=== PATIENT | female | born 2000 | race Caucasian/White ===

== ENCOUNTER 2023-10-08 11:05 | Emergency (ER) | payer OTHER, SELFPAY ==
[2023-10-08 11:05] VITALS: BMI 18.0
[2023-10-08 11:22] VITALS: BP 119/75
[2023-10-08 11:51] LABS: % Basophils 0.5 % (0-2); % Eosinophils 2.8 % (0-6); % Immature Granulocytes 0.2 % (0-0.5); % Lymphocytes 29.4 % (20.5-51.1); % Neutrophils 60.1 % (42.2-75.2); Absolute Eosinophils 0.2 10^3/uL (0-0.7); Absolute Lymphocytes 1.9 10^3/uL (1.2-3.4); Absolute Monocytes 0.4 10^3/uL (0.1-0.6); Absolute Neutrophils 3.8 10^3/uL (1.4-6.5); Hematocrit 37.4 % (37.0-47.0); Hemoglobin 13.4 g/dL (12.0-16.0); Mean Corp Hgb Conc. 35.8 g/dL (33.0-37.0); Mean Corpuscular Hgb 30.6 pg (27.0-31.0); Mean Corpuscular Volume 85.4 fL (81.0-99.0); Mean Platelet Volume 10.3 fL (7.4-10.4); Nucleated Red Blood Cells % 0 %; Platelet Count 242 10^3/uL (130-400); Red Blood Cell Count 4.38 10^6/uL (4.20-5.40); Red Cell Dist. Width 12.3 % (11.5-14.5); White Blood Cell Count 6.3 10^3/uL (4.8-10.8)
[2023-10-08 11:59] LABS: Urine Albumin Negative (Neg - Trace); Urine Bilirubin Negative (Negative); Urine Character Clear (Clear); Urine Color Straw; Urine Glucose Negative (Negative); Urine Ketone Negative (Negative); Urine Leukocyte Trace (Negative); Urine Nitrite Negative (Negative); Urine Occult Blood Negative (Negative); Urine Urobilinogen Negative (Neg - 1+)
[2023-10-08 12:06] LABS: ALT (SGPT) 16 U/L (0-35); AST (SGOT) 23 U/L (14-36); Albumin 4.3 g/dl (3.5-5.0); Alkaline Phosphatase 50 U/L (38-126); Blood Urea Nitrogen 5 mg/dl (7-17); Carbon Dioxide 26 mmol/L (22-30); Chloride 106 mmol/L (98-107); Glucose 101 mg/dl (70-99); Potassium 4.2 mmol/L (3.5-5.1); Sodium 136 mmol/L (135-145); Total Protein 6.8 g/dl (6.3-8.2); eGFR > 60.00
[2023-10-08 12:09] LABS: COVID-19 Antigen Negative (Negative)
[2023-10-08 12:10] LABS: Urine Squamous Cell 16-20 /LPF (Few)
[2023-10-08 12:11] LABS: Urine Bacteria Few (Negative); Urine Red Blood Cell 0-2 /HPF (0-2)
[2023-10-08 12:13] LABS: HCG, Serum Qualitative Screen Negative
--- NOTE | 2023-10-08 12:29 | ED.GENMED ---
History of Present Illness
General
Chief Complaint: Fainting/Passed Out
Time Seen by Provider: 10/08/23 12:29
Travel History
Have you had any contact with someone who has COVID-19?: No
Do you have any symptoms of coronavirus? Fever > 100 degrees, chills, cough, shortness of breath, sore throat, loss of taste or smell, muscle aches, or headache?: No
History of Present Illness
History of Present Illness:
HPI: Patient presents after 2 syncopal/near syncope events. Over the last several days, she has been feeling lightheaded recently as well as weak. She has no significant past medical history but does report a family history of moyamoya disease.
She has intermittently had some chest discomfort but none currently.
EXAM:
GENERAL: Well appearing in no distress
HEENT: Moist oral mucosa
CARDIOVASCULAR: No murmurs, normal heart rate and rhythm, No chest wall tenderness
PULMONARY: No respiratory distress, breath sounds are clear and equal
ABDOMEN: Soft with no peritoneal signs, no tenderness
NEUROLOGIC: Excellent strength all extremities, no coordination deficits, there is no facial asymmetry and there is excellent speech/language
PSYCHIATRIC: Appropriate mental status, normal insight and judgement
EXTREMITIES: Nontender, no edema, moves all extremities equally
SKIN: No rash, no lesions
ED COURSE:
12:40 PM: I initially evaluated patient
NUMBER AND COMPLEXITY OF PROBLEMS ADDRESSED AT THE ENCOUNTER
� Chronic conditions affecting care: Anxiety/depression
� Acute Exacerbation and/or Progression of Chronic Illness: This is an acute problem
� Differential Diagnosis includes: Vasovagal syncope, dehydration, electrolyte abnormality, thyroid disease, dysrhythmia, doubt intracranial pathology as she has a normal neurologic examination
AMOUNT AND/OR COMPLEXITY OF DATA TO BE REVIEWED AND ANALYZED
� I performed an independent evaluation of and my interpretation is:
EKG: Sinus 79, inferior T wave abnormality, downgoing T waves noted in V3 however the QRS is also negative, QTc [address]:
X-rays:
Laboratory Studies: White count and hemoglobin are normal, chemistries unremarkable, hCG negative, urinalysis without any clear evidence for infection.
Other:
� Review of other/old records: TSH was checked nearly 1 month ago which was normal
� Clinical information was obtained by an independent historian: Spoke to the mother at bedside
� Prescriptions/Medications Considered but not given:
� Further testing considered but not performed: Considered CTA for further evaluation given family history of moyamoya however the patient has no neurologic symptoms and an NIH stroke scale of 0
RISK OF COMPLICATIONS AND/OR MORBIDITY OR MORTALITY OF PATIENT MANAGEMENT
� Social determinants of health affecting care: Lives at home
� Discussion with other providers:
� Escalation of care including admission/observation vs risk of discharge considered: Initial blood work is unremarkable however the EKG is slightly changed and she does report some intermittent chest discomfort. Therefore
troponin will be obtained. Troponin negative. I reassessed the patient at 2 PM and she feels somewhat improved but some lightheadedness persists. She does have a low blood pressure reading however she is a very small stature. I have given her
contact information for neurologist regarding her concerns for family history of moyamoya.
Past History
Past History
ED Past Medical History: None
ED Past Surgical History: None
Patient has exhibited threatening behavior?: No
PSI?: No
Phy Exam
Physical Exam
Physical Exam:
See HPI
Course
Orders/Labs/Results
Orders:
Orders
10/08/23 11:25
Electrocardiogram (*1) Urgent
Reason for Study: Other
Other Reason for Exam: syncope
EKG- Treatment ONCE
Test Result ONCE
10/08/23 11:39
CMP [Comprehensive Metabolic Panel] Urgent
COVID-19 Antigen Urgent
Source: Nasal Swab
Complete Blood Count/With Diff Urgent
HCG, Serum Qualitative Screen Urgent
10/08/23 11:47
Urinalysis Reflex To Culture Urgent
Date Specimen was Collected: 10/08/23
Time Specimen was Collected: 11:25
Urine Microscopic Reflex Cult Urgent
10/08/23 12:47
0.9% Sodium Chloride 1000 ml [Nss] 1,000 ml IV BOLUS
10/08/23 12:52
Troponin I Urgent
Abnormal Lab Results
10/08/23 10/08/23
11:39 11:47
BUN 5 L mg/dl
(7-17)
Creatinine 0.5 L mg/dL
(0.6-1.0)
Glucose 101 H mg/dl
(70-99)
Leukocyte Esterase Rfl Trace A
(Negative)
Urine Bacteria (Reflex) Few A
(Negative)
10/08/23 11:39
10/08/23 11:39
Vital Signs
Initial and Last Documented VS:
Initial Vital Signs
Temp Pulse Resp BP Pulse Ox
97.5 F 95 16 119/75 98
10/08/23 11:22 10/08/23 11:22 10/08/23 11:22 10/08/23 11:22 10/08/23 11:22
Last Documented Vital Signs
Temp Pulse Resp BP Pulse Ox
97.5 F 81 16 88/64 98
10/08/23 11:22 10/08/23 13:46 10/08/23 11:22 10/08/23 13:46 10/08/23 11:22
*Critical Care Note
Total Time (30-74mins, 75-104mins- exclusive of procedures): Not Applicable
ED Attending Note
-
Portions of this chart may have been created with voice recognition software.� Occasional wrong word or��sound alike� substitutions may have occurred due to the inherent limitations of voice recognition software.
Discharge Plan
Departure
Patient Disposition: Home (Routine Discharge)
Date of Disposition: 10/08/23
Time of Disposition: 13:58
Patient with high blood pressure during this ER visit?: No
Discharge Problem:
Syncope
Prescriptions:
No Action
ondansetron 4 mg tablet,disintegrating
4 mg PO TIDPRN PRN (Reason: nausea/vomiting) Qty: 10 1RF
albuterol sulfate 90 mcg/actuation aerosol powdr breath activated
2 inh inhalation Q6H PRN (Reason: shortness of breath) Qty: 1 0RF
Referrals:
Jarrod Mejía MD [Active] - Follow up in 10 days
UNKNOWN - PT DOES,NOT KNOW [Family Provider] -
Stand Alone Forms: Return to Work
Activity Restrictions/Additional Instructions:
One of your blood pressure readings was somewhat low. We did give you a bag of fluid. Basic blood work is normal. I have also given the contact information for a local neurologist regarding the family history of moyamoya.
Interventions
Interventions:
*Risk Screen - Suicide Last Done: 10/08/23 12:30
*General Assessment Last Done: 10/08/23 12:30
*Neglect/Abuse Screening Last Done: 10/08/23 12:30
ED- Fall Risk Assessment Last Done: 10/08/23 12:30
*ED COVID-19 Vaccine History Last Done: 10/08/23 11:22
ED- Cardiac Assessment Last Done: 10/08/23 12:30
ED- Neurological Assessment Last Done: 10/08/23 12:30
[2023-10-08] MEDS: NSS 1000 IV (12:53)
[2023-10-08 13:30] LABS: Troponin I < 0.012 ng/ml
[2023-10-08 13:46] VITALS: BP 88/64
[2023-10-08 14:27] VITALS: BP 88/61
== END 2023-10-08 14:27 | disposition home or self-care (01) ==
LOC: EMR 11:05
PROVIDERS: Emergency Medicine; EMERGENCY PHYSICIAN Emergency Medicine
DX: R55 Syncope and collapse (principal); F32.A Depression, unspecified; F41.9 Anxiety disorder, unspecified
CPT/HCPCS: 99283; 96360; 80053; 81003; 81015; 84484; 84703; 85025; 87811; 93005

== ENCOUNTER 2024-06-07 11:09 | Emergency (ER) | payer OTHER, SELFPAY ==
[2024-06-07 11:14] VITALS: BP 105/75
[2024-06-07 11:41] LABS: % Basophils 0.6 % (0-2); % Eosinophils 1.7 % (0-6); % Immature Granulocytes 0.2 % (0-0.5); % Lymphocytes 40.6 % (20.5-51.1); % Monocytes 7.7 % (1.7-9.3); % Neutrophils 49.2 % (42.2-75.2); Absolute Eosinophils 0.1 10^3/uL (0-0.7); Absolute Lymphocytes 2.2 10^3/uL (1.2-3.4); Absolute Monocytes 0.4 10^3/uL (0.1-0.6); Absolute Neutrophils 2.6 10^3/uL (1.4-6.5); Hematocrit 38.6 % (37.0-47.0); Hemoglobin 13.8 g/dL (12.0-16.0); Mean Corp Hgb Conc. 35.8 g/dL (33.0-37.0); Mean Corpuscular Hgb 31.4 pg (27.0-31.0); Mean Corpuscular Volume 87.9 fL (81.0-99.0); Mean Platelet Volume 10.4 fL (7.4-10.4); Nucleated Red Blood Cells % 0 %; Platelet Count 213 10^3/uL (130-400); Red Blood Cell Count 4.39 10^6/uL (4.20-5.40); Red Cell Dist. Width 12.1 % (11.5-14.5); White Blood Cell Count 5.3 10^3/uL (4.8-10.8)
[2024-06-07 11:53] LABS: PT 14.1 Sec (11.4-14.6)
[2024-06-07 11:54] LABS: APTT 27.3 Sec (23.4-35.0)
[2024-06-07 11:55] LABS: ALT (SGPT) 23 U/L (0-35); AST (SGOT) 26 U/L (14-36); Albumin 4.8 g/dl (3.5-5.0); Alkaline Phosphatase 51 U/L (38-126); Blood Urea Nitrogen 5 mg/dl (7-17); Calcium 9.8 mg/dl (8.4-10.2); Carbon Dioxide 26 mmol/L (22-30); Chloride 103 mmol/L (98-107); Glucose 90 mg/dl (70-99); Potassium 3.6 mmol/L (3.5-5.1); Sodium 142 mmol/L (135-145); Total Bilirubin 0.9 mg/dl (0.2-1.3); Total Protein 7.1 g/dl (6.3-8.2); eGFR > 60.00
[2024-06-07 13:10] VITALS: BP 100/61
[2024-06-07 15:05] VITALS: BP 92/61
--- NOTE | 2024-06-07 15:21 | ED.GENMED ---
History of Present Illness
General
Chief Complaint: Rectal Bleeding
Source: patient
Exam Limitations: none
Time Seen by Provider: 06/07/24 12:27
Nursing documentation reviewed up to this point in time: agreed with
History of Present Illness
History of Present Illness:
pt s a 24 y/oF
h/o RBBB
no AC
started notincing that she was constipated over the past 2-3 weeks
was having firm hard to pass stools
1 week ago she went to urgent care and they did an x-ray and told her she was constipated. They told her to take MiraLAX twice a day for 3 days which she did and she started having regular bowel movements. She has not used MiraLAX in a couple of
days but today after trying to pass stool she saw blood in the toilet and then mixed in the stool. It was red blood. He did not color the toilet bowl red. She had a little bit of lower abdominal pain and rectal pain as well. She has not had any
vomiting, nausea, fever or chills. Patient's not on any anticoagulation. She has never had any hemorrhoids that she knows of. She denies placing anything in her rectum
Past History
Past History
ED Past Medical History: None
ED Past Surgical History: None
Patient has exhibited threatening behavior?: No
PSI?: No
Review of Systems
Review of Systems
Allergies reviewed?: Yes
All Other Systems: Not applicable
Phy Exam
Physical Exam
Physical Exam:
GENERAL: Alert , in no apparent distress
EYE: pupils equal and reactive
NECK: Supple
ENT: o/p clr, mmm.
CARDIAC: Regular rate and rhythm .
LUNGS: Clear breath sounds bilaterally, no acute respiratory distress, no wheezes/rales/rhonchi
ABDOMEN: Soft, no abdominal tenderness, no r/g, no cvat, normal bowel sounds
RectalL no fissures, there is a slightly prolapsed hemorrhoid which was palpated internally, there is no obvious thrombosis or bleeding. She was heme-negative
There was no significant rectal tenderness
NEUROLOGICAL: Alert and oriented, no focal neuro deficits
SKIN: Warm and dry, skin intact.
MUSCULOSKELETAL: No edema, well perfused.
PSYCH: Normal and appropriate interaction.
Course
Orders/Labs/Results
Orders:
Orders
06/07/24 11:22
Type+Screen Urgent
Complete Blood Count/With Diff Urgent
Comprehensive Metabolic Panel Urgent
PTT Urgent
Prothrombin Time Urgent
06/07/24 13:04
Abdominal Series [CR Obstruct Series W/pa Chest] Urgent
Comment:
Reason For Exam: rectal bleeding, constipation
Abnormal Lab Results
06/07/24
11:22
MCH 31.4 H pg
(27.0-31.0)
BUN 5 L mg/dl
(7-17)
06/07/24 11:22
06/07/24 11:22
Vital Signs
Initial and Last Documented VS:
Initial Vital Signs
Temp Pulse Resp BP Pulse Ox
98.0 F 91 16 105/75 100
06/07/24 11:14 06/07/24 11:14 06/07/24 11:14 06/07/24 11:14 06/07/24 11:14
Last Documented Vital Signs
Temp Pulse Resp BP Pulse Ox
98.0 F 70 18 92/61 99
06/07/24 11:14 06/07/24 15:05 06/07/24 13:10 06/07/24 15:05 06/07/24 13:10
MDM/Problems Addressed
Differential Diagnosis Includes:
Hemorrhoid, constipation,
MDM/Problems Addressed:
24 y/o f with constipation x 2 weeks
felt it resolved with 3 days miralax so she stopped it
today had BM and had blood on tp and with wiping and mixed with stool, red bloo
no other episodes
some mild anal pain
some lower abd pain and bloating
no thinners
wella pearing, minimal tenderness lower abd
rectal slightly swollen hemorrhoid slightly visible but mostly internal no thrombosis
hg stable
bun normal
xray shows some gas in lower abd no obstruction
metamucil
phenylephrine supp
f/u gi
*Critical Care Note
Total Time (30-74mins, 75-104mins- exclusive of procedures): Not Applicable
ED Attending Note
-
Portions of this chart may have been created with voice recognition software.� Occasional wrong word or��sound alike� substitutions may have occurred due to the inherent limitations of voice recognition software.
Discharge Plan
Departure
Patient Disposition: Home (Routine Discharge)
Date of Disposition: 06/07/24
Time of Disposition: 14:15
Patient with high blood pressure during this ER visit?: No
Condition: Fair
Covid-19: Not Applicable
Discharge Problem:
Rectal bleed, Constipation, Hemorrhoids
Instructions: Hemorrhoids (DC), Gastrointestinal Bleeding (DC)
Prescriptions:
New
phenylephrine HCl 0.25 % suppository
1 supp FL HS PRN (Reason: hemorrhoids) Qty: 12 0RF
Metamucil 3.4 gram/5.4 gram powder
1 tbsp PO DAILY Qty: 660 0RF
No Action
ondansetron 4 mg tablet,disintegrating
4 mg PO TIDPRN PRN (Reason: nausea/vomiting) Qty: 10 1RF
albuterol sulfate 90 mcg/actuation aerosol powdr breath activated
2 inh inhalation Q6H PRN (Reason: shortness of breath) Qty: 1 0RF
Referrals:
UNKNOWN - PT DOES,NOT KNOW [Family Provider] -
Activity Restrictions/Additional Instructions:
Your bleeding is likely from hemorrhoids
use hemorrhoid suppository as directed for 3-5 days
use metamucil daily (this is a stool softener)
eat a high fiber diet and drink plenty of fluids
you have follow up with Gi already scheduled
return for: severe worse bleeding (large volume in toilet, worse pain, fever, passing out,)
you can use a dose of miralax once a day to clear some of th estool out if you feel constipated
but if you are moving your bowels then just use the metamucil
you ahda lot of gas in your lower abdomen likely causing your pain
Interventions
Interventions:
*Risk Screen - Suicide Last Done: 06/07/24 11:14
*General Assessment Last Done: 06/07/24 11:14
*Neglect/Abuse Screening Last Done: 06/07/24 11:14
*ED COVID-19 Vaccine History Last Done: 06/07/24 11:14
*Nursing Disposition Last Done: 06/07/24 15:05
BK-Gtqqgj-Aixschnowr Assessment Last Done: 06/07/24 13:10
ED- Cardiac Assessment Last Done: 06/07/24 13:10
ED- Pulmonary Assessment Last Done: 06/07/24 13:10
Discharge Date and Time
Discharge Date/Time: 06/07/24 15:06
Print Language: HEBREW
== END 2024-06-07 15:06 | disposition home or self-care (01) ==
LOC: EMR 11:09
PROVIDERS: Emergency Medicine; EMERGENCY PHYSICIAN Student in an Organized Health Care Education/Training Program
DX: K62.5 Hemorrhage of anus and rectum (principal); K59.00 Constipation, unspecified; K64.9 Unspecified hemorrhoids
CPT/HCPCS: 99284; 74022; 80053; 85025; 85610; 85730; 86850; 86900; 86901